=== PATIENT | male | born 1950 | race Caucasian/White ===

== ENCOUNTER 2017-11-24 12:21 | Inpatient (IN) | payer OTHER, MEDICARE ==
--- NOTE | 2017-11-24 12:54 | EDPHY ---
H & P Time Seen by Provider: 11/24/17 12:39 HPI/ROS: CHIEF COMPLAINT: Lightheaded, black stools, falling down and left-sided back pain HISTORY OF PRESENT ILLNESS: 67-year-old man on no medications presents with feeling sick today with 2 episodes of nausea and vomiting with the red blood followed by a severe about of black diarrhea. This was associated with feeling lightheaded and dizzy when standing and passing out at least twice at home, hurting his left posterior chest and lateral abdomen. Pain is mild at rest but severe with movement or palpation. Started after 1 of his episodes of passing out. Does not radiate. No history of nonsteroidal or aspirin use or GI bleed. REVIEW OF SYSTEMS: Eye: no change in vision ENT: no sore throat Cardiac: Left posterior chest pain after the fall, syncope x2 as above. Pulmonary: no cough or SOB Abdomen: HPI Musculoskeletal: HPI no neck pain Skin: No bruising or laceration Neuro: No weakness or numbness in extremities Constitutional: no fever : no urinary symptoms A comprehensive 10 point review of systems is otherwise negative aside from elements mentioned in the history of present illness. PAST MEDICAL HISTORY: Previous back surgery Social history: No alcohol, moved to [place] 1 year ago, here with his son General Appearance: Alert and conversant, cooperative. Eyes: No scleral icterus. ENT, Mouth: Normal mucous membranes. Respiratory: Normal respiratory effort, breath sounds equal, lungs are clear to auscultation. Cardiovascular: Regular rate and rhythm. Gastrointestinal: Left upper quadrant tenderness laterally over the spleen but no rebound or guarding. Neurological: Alert, face symmetric, normal motor and sensory in extremities. Skin: Warm and dry, no rashes. Musculoskeletal: No arm or leg extremity tenderness. He has tender to palpation on the left posterior chest wall and mid axillary line. Psychiatric: Not agitated. Emergency Department course/MDM: 1250: Patient not in room, in x-ray, discussed with the son. 1323: Patient likely has acute upper GI bleed with a hematocrit of 25 resulting in syncope and injury to his left side. Plan for IV Protonix, type and cross, IV fluid resuscitation. Will probably need blood transfusion, discussed and consented with the patient and son. CT abdomen and pelvis with IV contrast to evaluate for splenic injury. Admission to hospitalist service to ICU with GI consultation. 1426: Repeat hemoglobin and hematocrit is 7 and 21, 1 unit packed red blood cells discussed and consented. 1500: Patient informed of his 4 left-sided rib fractures from [address] Calvert and small pneumothorax, General surgery consulted, Dr. Portillo. Patient did not come in as trauma activation, I think his primary emergent problem is his acute upper GI bleed. Trauma will consult for secondary injury sustained when he passed out due to hypovolemia. Smoking Status: Former smoker Constitutional: Initial Vital Signs Temperature (C) 36.6 C 11/24/17 12:29 Heart Rate 65 11/24/17 12:29 Respiratory Rate 16 11/24/17 12:29 Blood Pressure 117/70 11/24/17 12:29 O2 Sat (%) 95 11/24/17 12:29 O2 Delivery Mode Nasal Cannula O2 (L/minute) 2 Allergies/Adverse Reactions: No Known Allergies Allergy (Verified 11/24/17 13:56) Home Medications: Medication Instructions Recorded Aspirin [Aspirin 325 mg (*)] 325 mg PO DAILY PRN 11/24/17 Herbals/Supplements -Info Only 1 ea PO DAILY 11/24/17 Propylene Glycol/Peg 400/Pf 1 each EACHEYE DAILY PRN 11/24/17 [Systane 0.3-0.4% Eye Drops] Medical Decision Making - Diagnostics EKG Interpretation: 12-lead EKG interpreted by me; official reading is in computer system. My interpretation is sinus rhythm rate 70 with early anterior RS transition. Nonspecific diffuse T-wave flattening. Imaging Results: Imaging Impressions Chest X-Ray 11/24/17 12:35 Impression: 1. Left subcutaneous emphysema and possible small left apical pneumothorax. 2. Possible left upper posterior chest wall fractures. Correlation with physical examination is recommended. Abdomen CT 11/24/17 13:19 Impression: 1. Posterior/posterolateral left 8th through 12th rib fractures, with a two- site fracture in the 10th rib. 2. Small left pneumothorax. 3. Nonspecific stranding adjacent to the proximal duodenum/distal stomach, which could be related to perforated ulcer or less likely contusion. The patient reportedly has a GI bleed. 4. Probable ankylosing spondylitis. 5. Nonspecific groundglass opacities in the lower lobes, possibly related to contusions, aspiration, atelectasis, or other etiology. 6. Additional findings as above. Findings discussed with Kp Davila on 11/24/2017 at 1443 hours. Imaging: Discussed imaging studies w/ director call Radiologist Consult/Admit Bed Type: [facility] 1428, [facility] 1439, [facility] 1500 Critical Care Time: Critical care time spent by me, Dr. Davila, exclusively with the care of this patient was 40 minutes, exclusive of PA or [employer]GER time and exclusive of separate procedures. The organ system at risk was gastrointestinal and I ordered IV Protonix, IV fluids, specialist consultation, packed red blood cell transfusion to stabilize the patient and prevent worsening of the patient's condition. - Data Points Laboratory Results: Laboratory Results 11/24/17 12:33 11/24/17 12:33 11/24/17 11/24/17 11/24/17 14:25 12:33 12:33 WBC RBC Hgb POC Hgb 7.1 gm/dL L gm/dL (13.7-17.5) Hct POC Hct 21 % L % (40-51) MCV MCH MCHC RDW Plt Count MPV Neut % (Auto) Lymph % (Auto) [place] % (Auto) Eos % (Auto) Baso % (Auto) Nucleat RBC Rel Count Absolute Neuts (auto) Absolute Lymphs (auto) Absolute Monos (auto) Absolute Eos (auto) Absolute Basos (auto) Absolute Nucleated RBC Immature Gran % Immature Gran # PT INR APTT POC Sodium 142 mEq/L mEq/L (135-145) Sodium 140 mEq/L mEq/L (135-145) POC Potassium 4.3 mEq/L mEq/L (3.3-5.0) Potassium 4.5 mEq/L mEq/L (3.3-5.0) POC Chloride 108 mEq/L mEq/L (97-110) Chloride 109 mEq/L mEq/L (97-110) Carbon Dioxide 24 mEq/l mEq/l (22-31) Anion Gap 7 mEq/L L mEq/L (8-16) POC BUN 21 mg/dL mg/dL (7-23) BUN 24 mg/dL H mg/dL (7-23) Creatinine 0.7 mg/dL mg/dL (0.7-1.3) POC Creatinine 0.6 mg/dL L mg/dL (0.7-1.3) Estimated GFR > 60 Glucose 138 mg/dL H mg/dL (70-100) POC Glucose 136 mg/dL H mg/dL (70-100) Calcium 8.2 mg/dL L mg/dL (8.5-10.4) Iron TIBC Iron Saturation Ferritin Total Bilirubin Conjugated Bilirubin Unconjugated Bilirubin AST ALT Alkaline Phosphatase Troponin I Total Protein Albumin Patient ABO/Rh A POSITIVE Antibody Screen NEGATIVE Crossmatch IS Only See Detail 11/24/17 11/24/17 11/24/17 12:33 12:33 12:30 WBC 9.06 10^3/uL 10^3/uL (3.80-9.50) RBC 3.18 10^6/uL L 10^6/uL (4.40-6.38) Hgb 7.7 g/dL L g/dL (13.7-17.5) POC Hgb Hct 25.0 % L % (40.0-51.0) POC Hct MCV 78.6 fL L fL (81.5-99.8) MCH 24.2 pg L pg (27.9-34.1) MCHC 30.8 g/dL L g/dL (32.4-36.7) RDW 15.9 % H % (11.5-15.2) Plt Count 322 10^3/uL 10^3/uL (150-400) MPV 10.0 fL fL (8.7-11.7) Neut % (Auto) 87.3 % H % (39.3-74.2) Lymph % (Auto) 7.1 % L % (15.0-45.0) [place] % (Auto) 4.9 % % (4.5-13.0) Eos % (Auto) 0.0 % L % (0.6-7.6) Baso % (Auto) 0.3 % % (0.3-1.7) Nucleat RBC Rel Count 0.0 % % (0.0-0.2) Absolute Neuts (auto) 7.91 10^3/uL H 10^3/uL (1.70-6.50) Absolute Lymphs (auto) 0.64 10^3/uL L 10^3/uL (1.00-3.00) Absolute Monos (auto) 0.44 10^3/uL 10^3/uL (0.30-0.80) Absolute Eos (auto) 0.00 10^3/uL L 10^3/uL (0.03-0.40) Absolute Basos (auto) 0.03 10^3/uL 10^3/uL (0.02-0.10) Absolute Nucleated RBC 0.00 10^3/uL 10^3/uL (0-0.01) Immature Gran % 0.4 % % (0.0-1.1) Immature Gran # 0.04 10^3/uL 10^3/uL (0.00-0.10) PT 15.5 SEC H SEC (12.0-15.0) INR 1.21 H (0.83-1.16) APTT 26.4 SEC SEC (23.0-38.0) POC Sodium Sodium POC Potassium Potassium POC Chloride Chloride Carbon Dioxide Anion Gap POC BUN BUN Creatinine POC Creatinine Estimated GFR Glucose POC Glucose Calcium Iron 32.0 mcg/dL L mcg/dL (49.0-199.0) TIBC 363 ug/dL ug/dL (260-490) Iron Saturation 9 % L % (20-55) Ferritin 5.6 ng/mL L ng/mL (17.9-464.0) Total Bilirubin 0.4 mg/dL mg/dL (0.1-1.4) Conjugated Bilirubin 0.1 mg/dL mg/dL (0.0-0.5) Unconjugated Bilirubin 0.3 mg/dL mg/dL (0.0-1.1) AST 19 IU/L IU/L (17-59) ALT 27 IU/L IU/L (21-72) Alkaline Phosphatase 52 IU/L IU/L (38-126) Troponin I Total Protein 5.4 g/dL L g/dL (6.3-8.2) Albumin 2.9 g/dL L g/dL (3.5-5.0) Patient ABO/Rh Antibody Screen Crossmatch IS Only 11/24/17 12:30 WBC RBC Hgb POC Hgb Hct POC Hct MCV MCH MCHC RDW Plt Count MPV Neut % (Auto) Lymph % (Auto) [place] % (Auto) Eos % (Auto) Baso % (Auto) Nucleat RBC Rel Count Absolute Neuts (auto) Absolute Lymphs (auto) Absolute Monos (auto) Absolute Eos (auto) Absolute Basos (auto) Absolute Nucleated RBC Immature Gran % Immature Gran # PT INR APTT POC Sodium Sodium POC Potassium Potassium POC Chloride Chloride Carbon Dioxide Anion Gap POC BUN BUN Creatinine POC Creatinine Estimated GFR Glucose POC Glucose Calcium Iron TIBC Iron Saturation Ferritin Total Bilirubin Conjugated Bilirubin Unconjugated Bilirubin AST ALT Alkaline Phosphatase Troponin I 0.015 ng/mL ng/mL (0.000-0.034) Total Protein Albumin Patient ABO/Rh Antibody Screen Crossmatch IS Only Medications Given: Morphine Sulfate (Morphine) 1 - 2 mg IVP Q1HR PRN PRN Reason: Pain, Severe Unable to Take PO Stop: 12/04/17 14:49 Last Admin: 11/24/17 14:56 Dose: 2 mg Discontinued Medications Sodium Chloride (Ns) 1,000 mls @ 0 mls/hr IV EDNOW ONE; Wide Open PRN Reason: Protocol Stop: 11/24/17 13:19 Last Admin: 11/24/17 13:32 Dose: 1,000 mls Pantoprazole Sodium (Protonix) 80 mg IVP EDNOW ONE Stop: 11/24/17 13:19 Last Admin: 11/24/17 13:32 Dose: 80 mg Point of Care Test Results: Chemistry 11/24/17 14:25 POC Sodium 142 mEq/L mEq/L (135-145) POC Potassium 4.3 mEq/L mEq/L (3.3-5.0) POC Chloride 108 mEq/L mEq/L (97-110) POC BUN 21 mg/dL mg/dL (7-23) POC Creatinine 0.6 mg/dL L mg/dL (0.7-1.3) POC Glucose 136 mg/dL H mg/dL (70-100) ISTAT H&H 11/24/17 14:25 POC Hgb 7.1 gm/dL L gm/dL (13.7-17.5) POC Hct 21 % L % (40-51) Departure - Departure Disposition: [facility] Inpatient Acute Clinical Impression: Upper GI bleed, Multiple fractures of ribs, left side, initial encounter for closed fracture Traumatic pneumothorax Qualifiers: Encounter type: initial encounter Qualified Code(s): S27.0XXA - Traumatic pneumothorax, initial encounter Condition: Serious
[2017-11-24 12:57] LABS: PLATELET COUNT 322 10^3/uL (150-400)
[2017-11-24 13:06] LABS: INR 1.21 (0.83-1.16); PROTIME(PATIENT) 15.5 SEC (12.0-15.0)
[2017-11-24] MEDS ORDERED: PANTOPRAZOLE SODIUM 40 MG VIAL IVP ONE (13:18)
[2017-11-24] MEDS ORDERED: NS 1,000 ML IV ONE (13:18)
[2017-11-24] MEDS ORDERED: IOPAMIDOL (ISOVUE-300) 100 ML BTL ONE (13:27)
--- NOTE | 2017-11-24 13:47 | CPEKG ---
Test Reason : OPEN Blood Pressure : / mmHG Vent. Rate : 070 BPM Atrial Rate : 070 BPM P-R Int : 196 ms QRS Dur : 103 ms QT Int : 413 ms P-R-T Axes : 022 -23 225 degrees QTc Int : 446 ms Sinus rhythm Borderline left axis deviation Abnormal R-wave progression, early transition Nonspecific T abnormalities, diffuse leads Confirmed by Kp Davila ([id number]) on 11/24/2017 1:46:36 PM Referred By: Confirmed By:Kp Davila
[2017-11-24] MEDS ORDERED: ONDANSETRON 4 MG/2 ML VIAL IVP PRN ×2 (14:50→17:29)
[2017-11-24] MEDS ORDERED: ACETAMINOPHEN 325 MG TAB PO PRN (14:50)
[2017-11-24] MEDS ORDERED: ONDANSETRON DISINTEGRATING 4 MG TAB PO PRN (14:50)
[2017-11-24] MEDS ORDERED: PROMETHAZINE HCL 25 MG/ML INJ IVP PRN (14:50)
[2017-11-24] MEDS ORDERED: TEARS/DEXTRAN 70/HYPROMELLOSE 15 ML OPHT.BTL EACHEYE PRN (15:19)
--- NOTE | 2017-11-24 15:28 | GHP ---
DATE OF ADMISSION: 11/24/2017 HISTORY OF PRESENT ILLNESS: The patient is a pleasant 67-year-old gentleman with minimal past medica l history who presents to the hospital today with syncope and falls. He was in his usual state of he alth. He woke up this morning. He felt nauseated, lightheaded, dizzy, and he vomited some coffee-gr ound looking stuff. He passed out on the way. He had several episodes of black diarrhea and vomitin g. He is unable to relay the exact sequence of these events. He did not have epigastric pain. He d oes not drink a lot of alcohol. He does take an aspirin and he also takes [place] berries. He has no previous history of liver disease, gastrointestinal bleed, heavy alcohol use, or tobacco us e. He does not take an acid suppressing medicine. He does not give a history suggestive of peptic u lcer disease. He also describes a history of exertional chest pain/chest pressure, which he describes as angina, an d he has been taking aspirin and [place] berries for that since. It is improved. It sounds like he has good exercise tolerance. REVIEW OF SYSTEMS: Complete 10-point review of systems conducted negative, except as noted in the HP I. PAST MEDICAL HISTORY: 1. Back surgery in the 90s. 2. Low back pain from herniated disks. 3. Likely angina. ALLERGIES: No known drug allergies. HOME MEDICATIONS: Aspirin, Systane eye drops. SOCIAL HISTORY: He works at the [employer]. He does not smoke cigarettes or drink alc ohol. He is a vegan. FAMILY HISTORY: Notable for heart disease. His daughter is at the bedside and healthy. PHYSICAL EXAMINATION: VITAL SIGNS: Temp 36.6, blood pressure 117/70, pulse 65, breathing 16 times a minute, 95% on 2 L. GENERAL:. In no acute distress. HEENT: Sclerae anicteric. Oropharynx clear. Mucous membranes are moist. NECK: Supple without lymphadenopathy or JVD. LUNGS: Clear to auscul tation bilaterally. HEART: S1, S2. Not tachycardic. ABDOMEN: Soft, nontender, nondistended. LOW ER EXTREMITIES: No edema. Calves nontender. SKIN: Without rash. NEUROLOGIC: Nonfocal. LABORATORY DATA: Sodium 140, potassium 4.5, chloride 109, bicarb 24, BUN 24, creatinine 0.7, glucose 138. Troponin is pending. INR is 1.2. White count is 9, hemoglobin 7.7, hematocrit is 7.5, repeat a couple hours later 7.1 and 21, MCV is low at 78.6, RDW is elevated at 15, platelets are 322. Chest x-ray interpreted by me shows small pneumothorax and left-sided rib fractures. Abdominal CT shows no splenic injury. EKG interpreted by me shows sinus at 70 with normal axis and interval, T-wave inversion in V4 through V6. There are no T-wave changes in lead I or aVL. I discussed the case with Dr. Kp Davila. ASSESSMENT/PLAN: This is a 67-year-old gentleman with syncope, gastrointestinal bleed, rib fractures , pneumothorax. 1. Upper gastrointestinal bleed. This appears to be fairly brisk on the basis of his presyncope and anemia. He received 80 mg of Protonix. I will put him on b.i.d. intravenous PPI. He does not appe ar to have liver disease, although I will check some liver tests. Gastroenterology is going to see h im and they will perform a scope. I will follow his hematocrit q.4 hours. He has 2 units of blood o rdered now. 2. Acute blood loss anemia. As above. 3. Trauma with rib fractures. The trauma surgery team will see him. 4. Syncope. I suspect this is hypovolemic related to his gastrointestinal bleed. We will follow haylee he on telemetry. Cardiac workup to be forthcoming once completion of his upper gastrointestinal bleed . 5. Coagulopathy. He has a modestly elevated INR. We will follow. 6. Stable angina. Patient warrants a stress test, whether it is done during this admission is pendi karen. DISPOSITION: Inpatient status. CRITICAL CARE: 40 minutes /[id number]/MODL
[2017-11-24] MEDS: NS 1,000 ML IV SCH ×2 (16:18→19:52)
[2017-11-24] MEDS ORDERED: PROPOFOL/EMULSION 500 MG/50 ML BOTTLE IV ONE (16:33)
[2017-11-24] MEDS ORDERED: LIDOCAINE 2% 100 MG/5 ML SYR ONE (16:33)
[2017-11-24] MEDS ORDERED: EPINEPHrine 1 MG/10 ML SYR IVP ONE ×2 (16:40→17:17)
--- NOTE | 2017-11-24 16:48 | PDANEPAE ---
ANE History of Present Illness EGD ANE Past Medical History - Cardiovascular History Cardiovascular History Comment: angina - Pulmonary History Hx Oxygen in Use at Home: No - Endocrine History Hx Diabetes: No - GI History Hx Gastrointestinal Disorders: Yes Gastrointestinal History Comment: GI bleed ANE Review of Systems Review of systems is: negative Review of Systems: - Exercise capacity Exercise capacity: >=4 METS ANE Patient History - Allergies Allergies/Adverse Reactions: No Known Allergies Allergy (Verified 11/24/17 13:56) - Home Medications Home Medications: Aspirin [Aspirin 325 mg (*)] 325 mg PO DAILY PRN 11/24/17 [Last Taken Unknown] Herbals/Supplements -Info Only 1 ea PO DAILY 11/24/17 [Last Taken Unknown] Propylene Glycol/Peg 400/Pf [Systane 0.3-0.4% Eye Drops] 1 each EACHEYE DAILY PRN 11/24/17 [Last Taken Unknown] - NPO status NPO Status: no food or drink >8 hours - Anes Hx Anes Hx: no prior problems - Smoking Hx Smoking Status: Former smoker - Family Anes Hx Family Anes Hx: none ANE Labs/Vital Signs - Labs Result Diagrams: 11/24/17 12:33 11/24/17 12:33 - Vital Signs Vital Signs: reviewed preoperatively; see RN documention for details Blood Pressure: 136/73 Heart Rate: 65 Respiratory Rate: 24 O2 Sat (%): 92 Height: 182.88 cm Weight: 83.9 kg ANE Physical Exam - Airway Neck exam: FROM Mallampati Score: Class 2 Mouth exam: poor dentition - Pulmonary Pulmonary: no respiratory distress - Cardiovascular Cardiovascular: regular rate and rhythym - ASA Status ASA Status: IV, E ANE Anesthesia Plan Anesthesia Plan: GA with mask (IVGA with NC RBA of spont breathing IVGA vs GETA discussed extensively with pt. Risk of aspiration vs. risk enlarged PTX or tension PTX. Proceed with spont resp IVGA) Total IV Anesthesia: Yes
--- NOTE | 2017-11-24 16:59 | PDCONSULT ---
Ramp Boss Note: Trauma/Acute Care Surgery Consult 67 y/o male with GI bleed starting earlier today. He passed out at home and fell and landed on his left side. He was seen and evaluated in the ED by Dr. Davila and a CXR revealed a possible pneumothorax. An abd CT confirmed the finding and surgical consultation was requested. He is scheduled for emergent EGD by Dr. Conway this afternoon. PMH/SH/FH reviewed non-smoker, no EtOH, vegan Patient's daughter at the bedside (Mother of pancreatic cancer) ROS: melena, hemetemesis, syncope, left chest pain PE: O2 sat 94% RA P 65 BP 136/73 R 20 Pleasant gentleman in mild to moderate distress HEENT: NCAT/neck non-tender Lungs: diminished but clear on the left/tender to palpation left posterolateral chest wall with crepitance CVS: RRR Abd: soft/mildly distended, +BS Pelvis: stable to anterior/lateral compression ext: atraumatic/distal pulses +4/+4 neuor: O x3, no focal motor/sensory deficits labs: wbc 9.0 Hgb 7.7>7.1 Hct 25>21 Plat 322 INR 1.2 CXR/Abd CT reviewed: small left pneumo, seen best at the left base on CT, post pulmonary contusion Imp: GI bleed with blood loss anemia syncope with fall left posterior rib fx with small pneumo Rec: repeat CXR prior to procedure/serial exam/discussed possible need for left closed tube thoracostomy discussed possible etiology of GI bleed Radha Portillo MD, FACS
[2017-11-24] MEDS ORDERED: NALOXONE HCL 0.4 MG/ML INJ IVP PRN (17:29)
[2017-11-24] MEDS ORDERED: MEPERIDINE 25 MG/0.5 ML AMP IVP PRN (17:29)
[2017-11-24] MEDS ORDERED: DEXAMETHASONE 4 MG/ML VIAL IVP PRN (17:29)
[2017-11-24] MEDS ORDERED: HYDROmorphONE/DILAUDID 2 MG/ML INJ IVP PRN (17:29)
--- NOTE | 2017-11-24 17:30 | POSTANESTH ---
Post Anesthetic Evaluation Cardiovascular Status: Similar to Pre-Op Cond Respiratory Status: Normal, Stable, Similar to Pre-op Cond. Level of Consciousness/Mental Status: Can Participate in Eval, Moderately Sleepy Pain Control: Inadeq, Add Tx Required Nausea/Vomiting Control: Adequate, Prn Tx Ordered Complications Possibly Related to Anesthesia: None Noted
[2017-11-24] MEDS: fentaNYL 100 MCG/2 ML INJ IVP PRN ×3 (17:38→18:21)
[2017-11-24] MEDS ORDERED: fentaNYL 100 MCG/2 ML INJ ONE ×2 (17:38→17:49)
[2017-11-24] MEDS ORDERED: HYDROmorphONE/DILAUDID 2 MG/ML INJ ONE (17:49)
[2017-11-24] MEDS: PANTOPRAZOLE SODIUM 40 MG VIAL IVP SCH (20:06)
--- NOTE | 2017-11-24 21:19 | GCON ---
REFERRING PHYSICIAN: Baljinder Ramos MD CHIEF COMPLAINT: GI bleed. HISTORY OF PRESENT ILLNESS: I have been asked to see this patient in consultation by Dr. Baljinder Ramos for evaluation of GI bleeding. This very pleasant 67-year-old gentleman has presented to the emergency department after syncopal episode. He did suffer a back injury as well as pneumothorax. Surgery has been consulted regarding pneumothorax and is following him clinically. Did not require chest tube. Patient does have a history of chronic back pain. He does take frequent [place]. He had several episodes of black tarry stool with episodes of vomiting with black emesis. He has no significant history of alcohol use. He has no prior history of GI bleeding or ulcer disease. He denies any abdominal pain or discomfort. He was found to have an INR of 1.2 with a white count of 9 with a hemoglobin 7.7 and hematocrit of 25. Patient is being admitted to the ICU. Asked to see patient for further evaluation for GI bleeding. PAST MEDICAL HISTORY: Remarkable for back surgery in the , low back pain, herniated disk, questionable history of angina. ALLERGIES: No known drug allergies. MEDICATIONS: Prior to admission include aspirin and eye drops. SOCIAL HISTORY: He works at [employer]. Nonsmoker, nondrinker. He is a vegan. FAMILY HISTORY: Remarkable for heart disease. Otherwise negative as it pertains to chief complaint. REVIEW OF SYSTEMS: Negative for 10 systems other than as mentioned in HPI. PHYSICAL EXAM: VITAL SIGNS: 36.6 is his temp. Blood pressure is 117/70, pulse 65, respiratory rate 16, 95% on 2 L. GENERAL: He is a pale-looking gentleman and ill appearing and in no acute distress. HEENT: Normocephalic, atraumatic. EOMI. NECK: Supple. Mucous membranes moist. LUNGS: Clear. CARDIAC: Normal S1, S2 without murmur. ABDOMEN: Soft, benign, nontender. No hepatosplenomegaly. EXTREMITIES: Without clubbing, cyanosis, edema. NEURO: Nonfocal. SKIN: Warm, dry, intact. Somewhat pale and clammy. PSYCH: Alert and oriented x3 with normal affect. LABORATORY DATA: Serum sodium 140, potassium 4.5, chloride 109, CO2 24, BUN 24 , creatinine 0.6, blood sugar 138. Hemoglobin of 7.7, hematocrit 25, MCV of 78.6. Chest x-ray shows small pneumothorax, left-sided rib fractures. Abdominal CT without splenic injury. IMPRESSION: 67-year-old male with history of nonsteroidal antiinflammatory drug use with acute gastrointestinal bleeding with hematemesis and melena. Patient with drop in hematocrit. Patient is being admitted to the intensive care unit. Recommend fluid resuscitation. Transfuse 2 units packed red blood cells. Proceed with emergent endoscopy. Would also recommend intravenous Protonix 80 mg bolus with 8 mg/hour drip. Will follow with you. /[id number]/MODL MTDD
[2017-11-25] MEDS: NS 1,000 ML IV SCH (01:37)
[2017-11-25 06:56] LABS: INR 1.18 (0.83-1.16); PROTIME(PATIENT) 15.2 SEC (12.0-15.0)
[2017-11-25 07:05] LABS: PLATELET COUNT 213 10^3/uL (150-400)
--- NOTE | 2017-11-25 09:03 | PDMN ---
Medical Necessity Medical necessity: Pt meets INPT criteria per MD as of 11/24/17 and MCG M-180 UGI Bleed (est. LOS >2 MN for eval/mgmt of UGI bleed with syncope, rib fractures , pneumothorax, acute blood loss anemia requiring blood transfusion, IVF, IV PPI , morphine).
[2017-11-25] MEDS: OXYCODONE/APAP 5/325 TAB PO PRN ×3 (09:34→20:29)
[2017-11-25] MEDS: PANTOPRAZOLE SODIUM 40 MG VIAL IVP SCH (09:35)
--- NOTE | 2017-11-25 11:10 | HOSPPROG ---
Hospitalist Progress Note Assessment/Plan: 67 yo male who had a syncopal episode secondary to acute blood loss anemia from GI bleed and suffered left sided chest contusion with rib fractures and left pneumothorax #UGIB and ABLA -s/p endoscopy with cauterization. Official report/dictation is pending -cont PPI BID. I will change to oral -ok to stop IVF -CLD and ADAT -His Hgb is still low at 6.8 this morning, will transfuse another unit -Hold Aspirin which he takes for cardiac prophylaxis (no hx of stents, cardiac event, or procedures) #Left apical pneumothorax -resolved per CXR this a.m. -RT following -no indication for chest tube #Syncope, per above -denies cardiovascular symptoms #H-Pylori -triple therapy will be ordered Plan: per above GI following PT/OT/Speech to follow trend H/H today Ok to transfer out of the ICU today critical care time is 35 mins in this patient with GI bleed who still has significant anemia requiring further PRBC transfusion. D/w team during rounds. Subjective: no abdominal pain. Hgb is low at 6.8. denies cp or sob. Objective: Vital Signs Temp Pulse Resp BP Pulse Ox 37.1 C 69 16 112/68 96 11/25/17 07:49 11/25/17 10:00 11/25/17 10:00 11/25/17 10:00 11/25/17 10:00 Laboratory Results 11/25/17 06:30 11/25/17 06:30 11/24/17 11/25/17 11/26/17 05:59 05:59 05:59 Intake Total 3180 Output Total 725 Balance 2455 PT 15.2 SEC (12.0-15.0) H 11/25/17 06:30 INR 1.18 (0.83-1.16) H 11/25/17 06:30 - Physical Exam Constitutional: no apparent distress Eyes: PERRL Ears, Nose, Mouth, Throat: moist mucous membranes Cardiovascular: regular rate and rhythym, No edema Respiratory: no respiratory distress, no rales or rhonchi, clear to auscultation Gastrointestinal: normoactive bowel sounds, soft, non-tender abdomen Skin: warm Neurologic: AAOx3 Psychiatric: interacting appropriately, not anxious, not encephalopathic ICD10 Worksheet Patient Problems: Problems Problem Status Onset Multiple fractures of ribs, left side, initial encounter for closed fracture Acute Traumatic pneumothorax Acute Upper GI bleed Acute
--- NOTE | 2017-11-25 11:15 | SOAPPROG ---
SOAP Progress Note Assessment/Plan: Assessment: MW tear and DU s/p endoscopic therapy. Clips of MW tear with epi and DU treated with epi and bicap. No signs of rebleeding. Patient improved. H. pylori positive by serology. Plan: 1. Advance diet as tolerated to regular diet 2. D/C IV Pantoprazole when taking PO. Start Pantoprazole 40 mg PO BID x 2 weeks then 40 mg po daily total of 8 week of PPI therapy 3. Treat h. pylori upon discharge, Clarithromycin 500 mg PO BID, Amoxicillin 1000 mg PO BID, (plus PPI) x 14 days 4. Will need h. pylori breath test or stool antigen test 4 - 6 weeks post treatment of h. pylori 5. Avoid NSAIDs Please call with further questions. 11/25/17 11:17 Subjective: CC: GI Bled DU and MW tear s/p endoscopic treatment. No abdominal pain or signs or symptoms of GI bleeding. Objective: Vital Signs Temp Pulse Resp BP Pulse Ox 37.1 C 69 16 112/68 96 11/25/17 07:49 11/25/17 10:00 11/25/17 10:00 11/25/17 10:00 11/25/17 10:00 Laboratory Results 11/25/17 06:30 11/25/17 06:30 11/24/17 11/25/17 11/26/17 05:59 05:59 05:59 Intake Total 3180 Output Total 725 Balance 2455 PT 15.2 SEC (12.0-15.0) H 11/25/17 06:30 INR 1.18 (0.83-1.16) H 11/25/17 06:30 Generic Name Dose Route Start Last Admin Trade Name Freq PRN Reason Stop Dose Admin Acetaminophen 650 mg 11/24/17 14:50 Tylenol PO 05/23/18 14:49 Q4HRS PRN Pain, Mild/Fever, Can Take PO Artificial Tears 1 drop 11/24/17 15:19 Natural Balance Tears EACHEYE 05/23/18 15:18 DAILY PRN Dry Irritated Eyes Sodium Chloride 1,000 mls @ 200 mls/hr 11/24/17 15:00 11/25/17 01:37 Ns IV 05/23/18 14:59 1,000 mls CONT GINA Administration Morphine Sulfate 1 - 2 mg 11/24/17 14:50 11/25/17 03:04 Morphine IVP 12/04/17 14:49 2 mg Q1HR PRN Administration Pain, Severe Unable to Take PO Ondansetron HCl 4 mg 11/24/17 14:50 Zofran IVP 05/23/18 14:49 Q4HRS PRN Nausea/Vomiting, Can't Take PO Ondansetron HCl 4 mg 11/24/17 14:50 Zofran Odt PO 05/23/18 14:49 Q4HRS PRN Nausea/Vomiting, Use 1st Oxycodone/Acetaminophen 1 - 2 tab 11/25/17 09:29 11/25/17 09:34 Percocet 5/325 PO 12/05/17 09:28 1 tab Q6 PRN Administration Pain, Severe Able to Take PO Pantoprazole Sodium 40 mg 11/25/17 21:00 Protonix PO 05/24/18 20:59 BID GINA Promethazine HCl 6.25 - 12.5 mg 11/24/17 14:50 Phenergan IVP 05/23/18 14:49 Q6HRS PRN Nausea/Vomiting, Use 2nd Discontinued Medications Generic Name Dose Route Start Last Admin Trade Name Freq PRN Reason Stop Dose Admin Dexamethasone 4 mg 11/24/17 17:29 Decadron Injection IVP 11/24/17 18:29 ONCE PRN PACU, Nausea/Vomiting Epinephrine HCl Confirm 11/24/17 16:40 11/24/17 17:12 Epinephrine Administered 11/24/17 16:41 0.8 mg Dose Administration 1 mg IVP .STK-MED ONE Epinephrine HCl Confirm 11/24/17 17:17 Epinephrine Administered 11/24/17 17:18 Dose 1 mg IVP .STK-MED ONE Fentanyl 25 - 100 mcg 11/24/17 17:29 11/24/17 18:21 Sublimaze IVP 11/24/17 18:29 50 mcg Q5M PRN Administration PACU, IMMEDIATE Pain control Fentanyl Confirm 11/24/17 17:38 Sublimaze Administered 11/24/17 17:39 Dose 100 mcg .ROUTE .STK-MED ONE Fentanyl Confirm 11/24/17 17:49 Sublimaze Administered 11/24/17 17:50 Dose 100 mcg .ROUTE .STK-MED ONE Hydromorphone HCl 0.1 - 0.4 mg 11/24/17 17:29 11/24/17 18:21 Dilaudid IVP 11/24/17 18:29 0.2 mg Q10M PRN Administration PACU, PAIN Hydromorphone HCl Confirm 11/24/17 17:49 Dilaudid Administered 11/24/17 17:50 Dose 2 mg .ROUTE .STK-MED ONE Sodium Chloride 1,000 mls @ 0 mls/hr 11/24/17 13:18 11/24/17 13:32 Ns IV 11/24/17 13:19 1,000 mls EDNOW ONE Administration Protocol Wide Open Iopamidol Confirm 11/24/17 13:27 Isovue-300 Administered 11/24/17 13:28 Dose 100 ml .ROUTE .STK-MED ONE Lidocaine HCl Confirm 11/24/17 16:33 Lidocaine Hcl 2% Administered 11/24/17 16:34 Dose 100 mg .ROUTE .STK-MED ONE Meperidine HCl 12.5 - 25 mg 11/24/17 17:29 Demerol IVP 11/24/17 18:30 Q10M PRN PACU, shivering/rigors Morphine Sulfate Confirm 11/24/17 14:54 Morphine Administered 11/24/17 14:55 Dose 2 mg .ROUTE .STK-MED ONE Naloxone HCl 0.1 mg 11/24/17 17:29 Narcan IVP 11/24/17 18:29 Q2M PRN PACU Resp Rate <10/min Ondansetron HCl 2 - 4 mg 11/24/17 17:29 Zofran IVP 11/24/17 18:29 Q10M PRN PACU, Nausea/Vomiting Pantoprazole Sodium 80 mg 11/24/17 13:18 11/24/17 13:32 Protonix IVP 11/24/17 13:19 80 mg EDNOW ONE Administration Pantoprazole Sodium 40 mg 11/24/17 21:00 11/25/17 09:35 Protonix IVP 05/23/18 20:59 40 mg BID GINA Administration Propofol Confirm 11/24/17 16:33 Diprivan 10 Mg/Ml (Premix) Administered 11/24/17 16:34 Dose 500 mg IV .STK-MED ONE Physical Exam - Physical Exam General Appearance: alert, no apparent distress Respiratory: lungs clear Cardiac/Chest: regular rate, rhythm Abdomen: normal bowel sounds, non-tender, soft Skin: normal color, warm/dry Neuro/Psych: no motor/sensory deficits, alert, normal mood/affect, oriented x 3 ICD10 Worksheet Patient Problems: Problems Problem Status Onset Multiple fractures of ribs, left side, initial encounter for closed fracture Acute Traumatic pneumothorax Acute Upper GI bleed Acute
--- NOTE | 2017-11-25 11:47 | SOAPPROG ---
SOAP Progress Note Assessment/Plan: Assessment: 67 y/o M s/p syncopal episode and fall secondary to acute GI bleed and acute blood loss anemia S/p endoscopy and ablation H. pylori infection: on protonix. Triple therapy to be started. L sided posterior rib fracture: chest xray this am stable. No chest tube indicated ABLA: received 1uprbc this am. H&H will be followed today. S: Feels better. Denies belly pain. Does endorse left posterior chest pain. O: Alert Afebrile Hct 21 prior to transfusion this am RRR No increased WOB, lung sounds diminished on L, otherwise clear Abdomen: soft, nontender, mildly distended, normoactive BS 11/25/17 11:43 Objective: Vital Signs Temp Pulse Resp BP Pulse Ox 37.1 C 69 16 112/68 96 11/25/17 07:49 11/25/17 10:00 11/25/17 10:00 11/25/17 10:00 11/25/17 10:00 Laboratory Results 11/25/17 06:30 11/25/17 06:30 11/24/17 11/25/17 11/26/17 05:59 05:59 05:59 Intake Total 3180 Output Total 725 Balance 2455 PT 15.2 SEC (12.0-15.0) H 11/25/17 06:30 INR 1.18 (0.83-1.16) H 11/25/17 06:30 ICD10 Worksheet Patient Problems: Problems Problem Status Onset Multiple fractures of ribs, left side, initial encounter for closed fracture Acute Traumatic pneumothorax Acute Upper GI bleed Acute
--- NOTE | 2017-11-25 12:07 | ASMTCMCOM ---
CM Note CM Note Notes: Patient admitted after a syncopal episode and c/o of recent blood in stool and vomit. Found to have MW tear. He is s/p endoscopic repair. He will be on triple therapy for + H pylori. Patient is normally independent and lives alone. He has a supportive daughter/MARYBETH nearby. PT/OT/CREATIVE RECRUITER ordered today; Case Management will follow for d/c planning. Date Signed: 11/25/2017 12:07 PM Electronically Signed By:Zeenat Colon RN
--- NOTE | 2017-11-25 12:38 | SOAPPROG ---
SOAP Progress Note Assessment/Plan: Assessment: SEEN WITH MY NURSE PRACTITIONER/PLEASE REFER TO HER NOTE VITAL SIGNS STABLE, AFEBRILE AFTER SYNCOPAL EPISODE AN UPPER GI BLEED SECONDARY TO DUODENAL ULCER BREATH SOUNDS EQUAL AND SYMMETRIC WITH RESOLUTION OF LEFT PNEUMOTHORAX NO FURTHER EMESIS OR MELENA ABDOMEN SOFT NONTENDER HEMATOCRIT DOWN TO 22 Plan: FOLLOW-UP HEMATOCRIT AFTER TRANSFUSION 11/25/17 12:37 Objective: Vital Signs Temp Pulse Resp BP Pulse Ox 37.1 C 69 16 112/68 96 11/25/17 07:49 11/25/17 10:00 11/25/17 10:00 11/25/17 10:00 11/25/17 10:00 Laboratory Results 11/25/17 06:30 11/25/17 06:30 11/24/17 11/25/17 11/26/17 05:59 05:59 05:59 Intake Total 3180 Output Total 725 Balance 2455 PT 15.2 SEC (12.0-15.0) H 11/25/17 06:30 INR 1.18 (0.83-1.16) H 11/25/17 06:30 ICD10 Worksheet Patient Problems: Problems Problem Status Onset Multiple fractures of ribs, left side, initial encounter for closed fracture Acute Traumatic pneumothorax Acute Upper GI bleed Acute
[2017-11-25] MEDS: CLARITHROMYCIN 500 MG TAB PO SCH (20:28)
[2017-11-25] MEDS: PANTOPRAZOLE SODIUM 40 MG TAB PO SCH (20:29)
[2017-11-26] MEDS: OXYCODONE/APAP 5/325 TAB PO PRN ×2 (02:09→08:09)
[2017-11-26 05:33] LABS: PLATELET COUNT 210 10^3/uL (150-400)
[2017-11-26 07:35] VITALS: BP 121/64
[2017-11-26] MEDS: PANTOPRAZOLE SODIUM 40 MG TAB PO SCH (08:08)
[2017-11-26] MEDS: CLARITHROMYCIN 500 MG TAB PO SCH (08:08)
--- NOTE | 2017-11-26 11:08 | ASMTCMCOM ---
CM Note CM Note Notes: PT/OT are both recommending home with no needs. Patient will most likely d/c independently. CM available if d/c needs arise. Date Signed: 11/26/2017 11:07 AM Electronically Signed By:Coco Tee LCSW
--- NOTE | 2017-11-26 17:54 | GDS ---
DISCHARGE DIAGNOSES: 1. Upper gastrointestinal bleed due to Azeb-Lopez tear and duodenal ulcer with visible vessel, st atus post endoscopic therapy. 2. Helicobacter pylori positive. 3. Acute blood loss anemia. 4. Rib fractures with small apical pneumothorax. HISTORY: The patient is a 67-year-old male who had a syncopal episode due to acute blood loss anemia from a GI bleed subsequently suffering a left side chest contusion and rib fractures and a small lef t pneumothorax, which is since resolved. Gastroenterology was consulted and he underwent EGD showing both a Azeb-Lopez tear and a duodenal ulcer with visible vessel, that were treated with endoscopic therapy. There was no further evidence of bleeding. His H pylori antibody was positive. He will be discharged on a proton pump inhibitor a s well as antibiotic to treat H pylori. DISCHARGE MEDICATIONS: Please see computer record for full detailed list. NEW MEDICATIONS: 1. Amoxicillin 1000 mg p.o. twice daily for 14 days. 2. Clarithromycin 500 mg p.o. twice daily for 14 days. 3. Protonix 40 mg p.o. twice daily for 14 days and then decrease to once daily to complete 8 weeks. 4. Percocet 1 tab p.o. q.6 hours as needed for severe pain with rib fractures. ADDITIONAL DISCHARGE INSTRUCTIONS: 1. Repeat H pylori testing in 4 to 6 weeks via breath or stool test. 2. No NSAIDs. TIME: Greater than 30 minutes' time was spent arranging this discharge. Patient seen and examined b y on the day of discharge. /[id number]/MODL
== END 2017-11-26 14:15 | disposition home or self-care (01) | DRG 327 ==
LOC: F2N 16:00
PROVIDERS: ADMIT Internal Medicine; ATTEND Internal Medicine
PROC: 0DQ48ZZ Repair Esophagogastric Junction, Via Natural or Artificial Opening Endoscopic (ICD-10-PCS; principal; 2017-11-24 16:45)
PROC: 3E0G8GC Introduction of Other Therapeutic Substance into Upper GI, Via Natural or Artificial Opening Endoscopic (ICD-10-PCS; principal; 2017-11-24 16:45)
PROC: 30233N1 Transfusion of Nonautologous Red Blood Cells into Peripheral Vein, Percutaneous Approach (ICD-10-PCS; 2017-11-25)
DX: K22.6 Gastro-esophageal laceration-hemorrhage syndrome (principal); D62 Acute posthemorrhagic anemia; S22.42XA Multiple fractures of ribs, left side, initial encounter for closed fracture; S27.0XXA Traumatic pneumothorax, initial encounter; W18.39XA Other fall on same level, initial encounter; K26.9 Duodenal ulcer, unspecified as acute or chronic, without hemorrhage or perforation; B96.81 Helicobacter pylori [H. pylori] as the cause of diseases classified elsewhere; K44.9 Diaphragmatic hernia without obstruction or gangrene; E86.9 Volume depletion, unspecified; I20.8 Other forms of angina pectoris; Z80.0 Family history of malignant neoplasm of digestive organs
CPT/HCPCS: 82435-PO; 82565-PO; 82947-PO; 84132-PO; 84295-PO; 84520-PO; 85014-PO; 92523-GN; 96374; 97110-GP; 97116-GP; 97161-GP; 97166-GO; 97530-GO; 97535-GO; G8978-GP-CJ; G8979-GP-CI; G8987-GO-CK; G8988-GO-CI; G9165-GN-CH; G9166-GN-CH; G9167-GN-CH; J1170; J2001; J2270; J2704; J3010; P9016; P9040; Q9967